=== PATIENT | male | born 1945 | race Caucasian/White ===

== ENCOUNTER 2016-08-27 11:08 | Outpatient (CLI) | payer MEDICARE, OTHER | END 2016-08-27 23:59 | DX: S06.899A Other specified intracranial injury with loss of consciousness of unspecified duration, initial encounter (principal); W17.89XA Other fall from one level to another, initial encounter; Y92.017 Garden or yard in single-family (private) house as the place of occurrence of the external cause | CPT/HCPCS: A0170; A0425; A0427 ==